=== PATIENT | female | born 2000 | race Caucasian/White ===

== ENCOUNTER 2021-04-23 16:29 | Emergency (ER) | payer BC, SELFPAY ==
--- NOTE | ~2021-04-23 | CT_ITS ---
EXAMINATION: CT HEAD WITHOUT CONTRAST CLINICAL INFORMATION: Seizure. Brain mass. COMPARISON: None available. TECHNIQUE: Contiguous axial imaging was performed from the skull base to vertex without intravenous administration of contrast. This CT examination was performed using dose optimization techniques as appropriate, variously including the following: *Automated exposure control. *Adjustment of mA and/or kV according to patient size (this includes techniques or standardized protocols for targeted exams where dose is matched to indication/reason for exam; i.e. extremities or head). *Use of iterative reconstruction technique. DLP: 622 mGy-cm FINDINGS: There is no evidence of acute intracranial hemorrhage or edematous territorial infarction. There is no abnormal attenuation within the brain parenchyma. Grewal-white matter differentiation is preserved. The ventricles are normal in size and configuration. No evidence for obstructive hydrocephalus. No abnormal mass effect or midline shift. The suprasellar cistern remains widely patent. Normal positioning of the cerebellar tonsils. No extra-axial fluid collections. No acute soft tissue or osseous abnormalities. The mastoid air cells and paranasal sinuses are clear. Mild leftward nasal septal deviation. CT/CT head/brain wo con IMPRESSION: No evidence of acute intracranial hemorrhage. No demonstrated abnormal intracranial mass effect.
[2021-04-23 17:42] VITALS: BP 120/76; PULSE 68; RESP 19; TEMP 36.6; O2SAT 98; BMI 25.8
--- NOTE | 2021-04-23 17:46 | ED.GENADULT ---
HPI - General Adult General Chief complaint: General Medical <UNA Fuchs - Last Filed: 04/24/21 15:29> Stated complaint: seizures, blood work <UNA Fuchs - Last Filed: 04/24/21 15:29> Time Seen by Provider: 04/23/21 17:43 <UNA Fuchs - Last Filed: 04/24/21 15:29> Source: patient <Mere Kohli MD - Last Filed: 04/23/21 23:25> Mode of arrival: ambulatory <Mere Kohli MD - Last Filed: 04/23/21 23:25> History of Present Illness HPI narrative: 20-year-old female with history of bipolar disorder and suicide attempt earlier in the your presents with complaints of intermittent inability to speak where she states that she is only able to text in order to communicate with her friends and notes that yesterday she fell down to the ground and was screaming and also describes what she feels is seizure-like activity with the exception that she is able to hear and see everything that is happening and denies any loss of bowel or bladder. Patient states that she has been taking her medication but feels that she does not have bipolar. She feels like she may be having a ?meltdown? but denies suicidal or homicidal ideation. She last saw her psychiatrist in 2 months ago and her next appointment is 1 month. This psychiatrist practices in the state of [place]. <Mere Kohli MD - Last Filed: 04/23/21 23:25> Related Data Allergies/adverse reactions: Allergies Allergy/AdvReac Type Severity Reaction Status Date / Time No Known Allergies Allergy Verified 04/23/21 17:44 <UNA Fuchs - Last Filed: 04/24/21 15:29> Review of Systems Review of Systems: Pertinent positives and negatives as stated in HPI 10 point review of systems is otherwise negative. <Mere Kohli MD - Last Filed: 04/23/21 23:25> PMFSH Past Medical History Source: nursing notes reviewed <Mere Kohli MD - Last Filed: 04/23/21 23:25> Medical History: Medical History ADHD Bipolar 1 disorder OCD (obsessive compulsive disorder) <UNA Fuchs - Last Filed: 04/24/21 15:29> Social History Social History: Social History Advance Directives: No Advance Directives Information Provided: No Patient : No <UNA Fuchs - Last Filed: 04/24/21 15:29> Physical Exam Vital Signs: Vital Signs: Last Vital Signs Temp 98.7 F 04/23/21 20:42 Pulse 64 04/23/21 20:42 Resp 16 04/23/21 20:42 BP 112/65 04/23/21 20:42 Pulse Ox 100 04/23/21 20:42 Body Mass Index 25.8 <UNA Fuchs - Last Filed: 04/24/21 15:29> Vital Signs: Last Vital Signs Temp 98.7 F 04/23/21 20:42 Pulse 64 04/23/21 20:42 Resp 16 04/23/21 20:42 BP 112/65 04/23/21 20:42 Pulse Ox 100 04/23/21 20:42 Body Mass Index 25.8 VITAL SIGNS: Reviewed. GENERAL: Well developed, well nourished, in no acute distress. HEAD: Normocephalic/atraumatic EYES: PERRLA, EOMI OROPHARYNX: no oral lesions noted, posterior pharynx clear LUNGS: Normal breath sounds. No adventitious sounds or accessory muscle use. SpO2<100> CARDIOVASCULAR: Regular rate and rhythm without noted murmurs ABDOMEN: Soft, non-tender, non-distended with bowel sounds. NEUROLOGIC: Alert and oriented x 4. Strength and sensation to light touch were grossly intact x 4. PSYCH: Calm, cooperative, flat affect <Mere Kohli MD - Last Filed: 04/23/21 23:25> Course Course Course Narrative: patient presents to the ED for possible seizure like activities. patient states 4 episodes of talking and then become stiff, her eyes blinking, not talking, and not moving extremities. patient states they last for a couple of seconds. Patiient states having it int he past, but never informed a medical provider. Patient is A0x3 and neuro exam intact. Rapid Medical Screening ordered. <UNA Fuchs - Last Filed: 04/24/21 15:29> Reevaluation(s) Reevaluation #1: 20-year-old female with history and clinical presentations suspected possible behavioral abnormalities and review of all investigations otherwise negative for evidence of metabolic, infectious abnormalities and CT of the head is negative. On questioning patient whether not she wishes to speak with somebody from our crisis team she affirms that she would like to do this. She is otherwise medically cleared for further evaluation by the care team. Patient evaluated by crisis team who feels that patient is safe for discharge and will be for provided with additional community resources for support, follow-up, as well as additional testing at the patient's request. Patient remains without complaints of suicidal ideation or depression and feels comfortable with her discharge. <Mere Kohli MD - Last Filed: 04/23/21 23:25> Medical Decision Making Lab Data Result diagrams: : 04/23/21 19:35 04/23/21 19:35 <UNA Fuchs - Last Filed: 04/24/21 15:29> Labs: Lab Results 04/23/21 04/23/21 04/23/21 Range/Units 19:35 19:35 20:50 WBC 9.6 (4.8-10.8) X10*3/uL RBC 4.71 (4.20-5.50) X10*6/uL Hgb 14.2 (12.0-16.0) g/dl Hct 43.5 (37-47) % MCV 92.4 (80-98) fL MCH 30.1 (27.0-33.0) pg MCHC 32.6 (31.0-35.0) g/dl RDW 14.2 (11.0-16.0) % Plt Count 369 (160-400) X10*3/uL MPV 9.1 L (9.4-12.3) fL Immature Gran % (Auto) 0.3 (0.0-0.4) % Neut % (Auto) 69.9 (45-73) % Lymph % (Auto) 22.7 (20-40) % [place] % (Auto) 6.0 (2-11) % Eos % (Auto) 0.6 (0-4) % Baso % (Auto) 0.5 (0-2) % Lymph # (Auto) 2.2 (1.2-4.9) X10*3/uL [place] # (Auto) 0.6 (0.1-1.2) X10*3/uL Eos # (Auto) 0.1 (0.0-0.4) X10*3/uL Baso # (Auto) 0.1 (0.0-0.2) X10*3/uL Abs Immat Gran (auto) 0.03 (0.00-0.03) X10*3/uL Absolute Neuts (auto) 6.7 (2.0-8.3) X10*3/uL Absolute Nucleated RBC 0.000 (0.0-0.012) X10*3/uL Nucleated RBC % (auto) 0.0 (0.0-0.2) /100WBC Sodium 141 (135-145) mmol/L Potassium 4.0 (3.3-5.1) mmol/L Chloride 107 (96-108) mmol/L Carbon Dioxide 25 (22-29) mmol/L Anion Gap 13 (12-20) BUN 6 L (9-16) mg/dL Creatinine 0.82 (0.5-1.4) mg/dL Estim Creat Clear Calc 118.3 Estimated GFR > 60 Random Glucose 90 (60-115) mg/dL Calcium 10.0 (8.4-10.2) mg/dL Magnesium 2.2 (1.6-2.6) mg/dL Total Bilirubin 0.6 (0.0-1.0) mg/dL Direct Bilirubin 0.2 (0.0-0.5) mg/dL AST 20 (5-31) U/L ALT 25 (0-31) U/L Alkaline Phosphatase 82 (39-117) U/L Total Creatine Kinase 64 (26-140) U/L Total Protein 7.6 (6.5-8.0) g/dL Albumin 4.9 (3.5-5.0) g/dL Beta HCG, Quant < 2 mIU/mL Urine Color Urine Appearance Urine pH (5.0-8.0) Ur Specific [place] (1.005-1.025) Urine Protein (NEG-TRACE) MG/DL Urine Glucose (UA) (NEG) MG/DL Urine Ketones (NEG) MG/DL Urine Blood (NEG) Urine Nitrite (NEG) Ur Leukocyte Esterase (NEG) Urine Test (NEGATIVE) [place] 0.17 L (0.60-1.20) mmol/L COVID-19 (FRANCES) (Negative) COVID-19 Clin Com 04/23/21 04/23/21 04/23/21 Range/Units 20:50 20:50 21:50 WBC (4.8-10.8) X10*3/uL RBC (4.20-5.50) X10*6/uL Hgb (12.0-16.0) g/dl Hct (37-47) % MCV (80-98) fL MCH (27.0-33.0) pg MCHC (31.0-35.0) g/dl RDW (11.0-16.0) % Plt Count (160-400) X10*3/uL MPV (9.4-12.3) fL Immature Gran % (Auto) (0.0-0.4) % Neut % (Auto) (45-73) % Lymph % (Auto) (20-40) % [place] % (Auto) (2-11) % Eos % (Auto) (0-4) % Baso % (Auto) (0-2) % Lymph # (Auto) (1.2-4.9) X10*3/uL [place] # (Auto) (0.1-1.2) X10*3/uL Eos # (Auto) (0.0-0.4) X10*3/uL Baso # (Auto) (0.0-0.2) X10*3/uL Abs Immat Gran (auto) (0.00-0.03) X10*3/uL Absolute Neuts (auto) (2.0-8.3) X10*3/uL Absolute Nucleated RBC (0.0-0.012) X10*3/uL Nucleated RBC % (auto) (0.0-0.2) /100WBC Sodium (135-145) mmol/L Potassium (3.3-5.1) mmol/L Chloride (96-108) mmol/L Carbon Dioxide (22-29) mmol/L Anion Gap (12-20) BUN (9-16) mg/dL Creatinine (0.5-1.4) mg/dL Estim Creat Clear Calc Estimated GFR Random Glucose (60-115) mg/dL Calcium (8.4-10.2) mg/dL Magnesium (1.6-2.6) mg/dL Total Bilirubin (0.0-1.0) mg/dL Direct Bilirubin (0.0-0.5) mg/dL AST (5-31) U/L ALT (0-31) U/L Alkaline Phosphatase (39-117) U/L Total Creatine Kinase (26-140) U/L Total Protein (6.5-8.0) g/dL Albumin (3.5-5.0) g/dL Beta HCG, Quant mIU/mL Urine Color YELLOW Urine Appearance CLEAR Urine pH 7.5 (5.0-8.0) Ur Specific [place] 1.020 (1.005-1.025) Urine Protein NEG (NEG-TRACE) MG/DL Urine Glucose (UA) NEG (NEG) MG/DL Urine Ketones NEG (NEG) MG/DL Urine Blood NEG (NEG) Urine Nitrite NEG (NEG) Ur Leukocyte Esterase NEG (NEG) Urine Test NEGATIVE (NEGATIVE) [place] (0.60-1.20) mmol/L COVID-19 (FRANCES) Negative (Negative) COVID-19 Clin Com See Note <UNA Fuchs - Last Filed: 04/24/21 15:29> Lab Results 04/23/21 04/23/21 04/23/21 Range/Units 19:35 19:35 20:50 WBC 9.6 (4.8-10.8) X10*3/uL RBC 4.71 (4.20-5.50) X10*6/uL Hgb 14.2 (12.0-16.0) g/dl Hct 43.5 (37-47) % MCV 92.4 (80-98) fL MCH 30.1 (27.0-33.0) pg MCHC 32.6 (31.0-35.0) g/dl RDW 14.2 (11.0-16.0) % Plt Count 369 (160-400) X10*3/uL MPV 9.1 L (9.4-12.3) fL Immature Gran % (Auto) 0.3 (0.0-0.4) % Neut % (Auto) 69.9 (45-73) % Lymph % (Auto) 22.7 (20-40) % [place] % (Auto) 6.0 (2-11) % Eos % (Auto) 0.6 (0-4) % Baso % (Auto) 0.5 (0-2) % Lymph # (Auto) 2.2 (1.2-4.9) X10*3/uL [place] # (Auto) 0.6 (0.1-1.2) X10*3/uL Eos # (Auto) 0.1 (0.0-0.4) X10*3/uL Baso # (Auto) 0.1 (0.0-0.2) X10*3/uL Abs Immat Gran (auto) 0.03 (0.00-0.03) X10*3/uL Absolute Neuts (auto) 6.7 (2.0-8.3) X10*3/uL Absolute Nucleated RBC 0.000 (0.0-0.012) X10*3/uL Nucleated RBC % (auto) 0.0 (0.0-0.2) /100WBC Sodium 141 (135-145) mmol/L Potassium 4.0 (3.3-5.1) mmol/L Chloride 107 (96-108) mmol/L Carbon Dioxide 25 (22-29) mmol/L Anion Gap 13 (12-20) BUN 6 L (9-16) mg/dL Creatinine 0.82 (0.5-1.4) mg/dL Estim Creat Clear Calc 118.3 Estimated GFR > 60 Random Glucose 90 (60-115) mg/dL Calcium 10.0 (8.4-10.2) mg/dL Magnesium 2.2 (1.6-2.6) mg/dL Total Bilirubin 0.6 (0.0-1.0) mg/dL Direct Bilirubin 0.2 (0.0-0.5) mg/dL AST 20 (5-31) U/L ALT 25 (0-31) U/L Alkaline Phosphatase 82 (39-117) U/L Total Creatine Kinase 64 (26-140) U/L Total Protein 7.6 (6.5-8.0) g/dL Albumin 4.9 (3.5-5.0) g/dL Beta HCG, Quant < 2 mIU/mL Urine Color Urine Appearance Urine pH (5.0-8.0) Ur Specific [place] (1.005-1.025) Urine Protein (NEG-TRACE) MG/DL Urine Glucose (UA) (NEG) MG/DL Urine Ketones (NEG) MG/DL Urine Blood (NEG) Urine Nitrite (NEG) Ur Leukocyte Esterase (NEG) Urine Test (NEGATIVE) [place] 0.17 L (0.60-1.20) mmol/L COVID-19 (FRANCES) (Negative) COVID-19 Clin Com 04/23/21 04/23/21 04/23/21 Range/Units 20:50 20:50 21:50 WBC (4.8-10.8) X10*3/uL RBC (4.20-5.50) X10*6/uL Hgb (12.0-16.0) g/dl Hct (37-47) % MCV (80-98) fL MCH (27.0-33.0) pg MCHC (31.0-35.0) g/dl RDW (11.0-16.0) % Plt Count (160-400) X10*3/uL MPV (9.4-12.3) fL Immature Gran % (Auto) (0.0-0.4) % Neut % (Auto) (45-73) % Lymph % (Auto) (20-40) % [place] % (Auto) (2-11) % Eos % (Auto) (0-4) % Baso % (Auto) (0-2) % Lymph # (Auto) (1.2-4.9) X10*3/uL [place] # (Auto) (0.1-1.2) X10*3/uL Eos # (Auto) (0.0-0.4) X10*3/uL Baso # (Auto) (0.0-0.2) X10*3/uL Abs Immat Gran (auto) (0.00-0.03) X10*3/uL Absolute Neuts (auto) (2.0-8.3) X10*3/uL Absolute Nucleated RBC (0.0-0.012) X10*3/uL Nucleated RBC % (auto) (0.0-0.2) /100WBC Sodium (135-145) mmol/L Potassium (3.3-5.1) mmol/L Chloride (96-108) mmol/L Carbon Dioxide (22-29) mmol/L Anion Gap (12-20) BUN (9-16) mg/dL Creatinine (0.5-1.4) mg/dL Estim Creat Clear Calc Estimated GFR Random Glucose (60-115) mg/dL Calcium (8.4-10.2) mg/dL Magnesium (1.6-2.6) mg/dL Total Bilirubin (0.0-1.0) mg/dL Direct Bilirubin (0.0-0.5) mg/dL AST (5-31) U/L ALT (0-31) U/L Alkaline Phosphatase (39-117) U/L Total Creatine Kinase (26-140) U/L Total Protein (6.5-8.0) g/dL Albumin (3.5-5.0) g/dL Beta HCG, Quant mIU/mL Urine Color YELLOW Urine Appearance CLEAR Urine pH 7.5 (5.0-8.0) Ur Specific [place] 1.020 (1.005-1.025) Urine Protein NEG (NEG-TRACE) MG/DL Urine Glucose (UA) NEG (NEG) MG/DL Urine Ketones NEG (NEG) MG/DL Urine Blood NEG (NEG) Urine Nitrite NEG (NEG) Ur Leukocyte Esterase NEG (NEG) Urine Test NEGATIVE (NEGATIVE) [place] (0.60-1.20) mmol/L COVID-19 (FRANCES) Negative (Negative) COVID-19 Clin Com See Note <Mere Kohli MD - Last Filed: 04/23/21 23:25> Discharge Plan Discharge Clinical Impression: Bipolar 1 disorder, Depression <UNA Fuchs - Last Filed: 04/24/21 15:29> Patient Disposition: Home, Self-Care <UNA Fuchs - Last Filed: 04/24/21 15:29> Instructions: Bipolar Disorder (ED), Depression (ED), Suicide Prevention (ED) <UNA Fuchs - Last Filed: 04/24/21 15:29> Additional Instructions: 1. Resume all home medications as prescribed. 2. Please utilize the information that you have been provided by the CARE team. 3. Do not hesitate to return to the emergency room should you experience any worsening of your symptoms, feeling overwhelm/depressed as we will be more than happy to help you. <UNA Fuchs - Last Filed: 04/24/21 15:29> Interventions: ED Discharge Assessment Last Done: 04/23/21 23:31 <UNA Fuchs - Last Filed: 04/24/21 15:29> Discharge Date/Time: 04/23/21 23:46 <UNA Fuchs - Last Filed: 04/24/21 15:29>
[2021-04-23 19:40] LABS: MANUAL DIFF FLAG NO
[2021-04-23 19:41] LABS: Basophils Absolute Auto 0.1 X10*3/uL (0.0-0.2); Basophils Percent Auto 0.5 % (0-2); Eosinophils Absolute Auto 0.1 X10*3/uL (0.0-0.4); Eosinophils Percent Auto 0.6 % (0-4); Hematocrit 43.5 % (37-47); Hemoglobin 14.2 g/dl (12.0-16.0); Imm Gran Abs Auto 0.03 X10*3/uL (0.00-0.03); Imm Gran Pct Auto 0.3 % (0.0-0.4); Lymphocytes Absolute Auto 2.2 X10*3/uL (1.2-4.9); Lymphocytes Percent Auto 22.7 % (20-40); Mean Corpuscular HGB Conc 32.6 g/dl (31.0-35.0); Mean Corpuscular Hemoglobin 30.1 pg (27.0-33.0); Mean Corpuscular Volume 92.4 fL (80-98); Mean Platelet Volume 9.1 fL (9.4-12.3); Monocytes Absolute Auto 0.6 X10*3/uL (0.1-1.2); Neutrophils Absolute Auto 6.7 X10*3/uL (2.0-8.3); Neutrophils Percent Auto 69.9 % (45-73); Platelet Count 369 X10*3/uL (160-400); Red Blood Count 4.71 X10*6/uL (4.20-5.50); Red Cell Distribution Width 14.2 % (11.0-16.0); White Blood Count 9.6 X10*3/uL (4.8-10.8)
[2021-04-23 20:04] LABS: Alanine Aminotransferase 25 U/L (0-31); Albumin Level 4.9 g/dL (3.5-5.0); Alkaline Phosphatase 82 U/L (39-117); Anion Gap 13 (12-20); Aspartate Amino Transferase 20 U/L (5-31); Bilirubin Direct 0.2 mg/dL (0.0-0.5); Bilirubin Total 0.6 mg/dL (0.0-1.0); Blood Urea Nitrogen 6 mg/dL (9-16); Carbon Dioxide 25 mmol/L (22-29); Chloride 107 mmol/L (96-108); Creatinine Clr Calc Pharmacy 118.3; Estimated Glomerular Filt Rate > 60; Glucose Random 90 mg/dL (60-115); Magnesium 2.2 mg/dL (1.6-2.6); Sodium 141 mmol/L (135-145); Total Protein 7.6 g/dL (6.5-8.0)
[2021-04-23 20:06] LABS: HCG Quantitative < 2 mIU/mL
[2021-04-23 20:42] VITALS: BP 112/65; PULSE 64; RESP 16; TEMP 37.1; O2SAT 100
[2021-04-23 20:57] LABS: Appearance Urine CLEAR; Color Urine YELLOW; Glucose Urine UA NEG (NEG); Leukocyte Esterase Urine NEG (NEG); Nitrite Urine NEG (NEG); PH 7.5 (5.0-8.0); Urine Blood NEG (NEG); Urine Ketones NEG (NEG); Urine Protein NEG (NEG-TRACE)
[2021-04-23 20:58] LABS: UPreg QC Valid YES; Urine Pregnancy NEGATIVE (NEGATIVE)
[2021-04-23 21:10] LABS: Lithium 0.17 mmol/L (0.60-1.20)
--- NOTE | 2021-04-23 21:52 | MHC.CARE ---
CARE team consult received. Pt has [employer] insurance and will be evaluated by this telegraphic typewriter installer.
[2021-04-23 22:10] LABS: COVID-19 Test Negative (Negative)
--- NOTE | 2021-04-23 22:13 | PC.NURSE ---
Patient just got transferred from main ED, ambulated independently, no distress observed/reported, waiting to be seen by care team, will continue to monitor.
--- NOTE | 2021-04-23 23:23 | MHC.CARE ---
CARE team met with pt in pod room 3. She was brought to ED by a friend for complaints of episodes of meltdowns that have been happening for the past week. She described them as either her falling to the floor while screaming and crying, or falling to the floor with a vacant expression on her face and being unable to speak or respond to others despite being totally aware of what is happening around her. Prior to one week ago she would occasionally experience the meltdowns (screaming and crying) but the four which she has had recently have all been the latter. She expressed feeling that she may have undiagnosed Autism Spectrum Disorder, and that she has been doing a lot of research and feels that everything points to a possible diagnosis. She shared that doctors have given her many diagnoses, including Bipolar Disorder and Obsessive-Compulsive Disorder, however she feels that her symptoms could all be due to undiagnosed and unaddressed Autism. She reported that she had a 504 plan (for social/emotional/behavioral support) in high school, which was likely in response to the onset of a major depressive episode, but did not have an IEP or any neuropsych or psych testing completed. She is currently connected with the student disability services office at [facility], but doesn't feel that the support there helps enough. She described that each academic year/semester starts off well, but as her classes progress she becomes overwhelmed, has meltdowns, and becomes increasingly anxious and depressed. She has a history of one suicide attempt via tylenol overdose in December 2020 and engaged in self harm (cutting) for four months prior. Denied current or recent SI/HI/SIB. She has a history of one psychiatric admission following the aforementioned suicide attempt. She is working with a psychiatrist, whom she last saw 2 months ago and has an appointment with next month. She does not have a therapist at this time but had worked with one for several years prior. 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 She has a younger sister who just moved to [place] to live with her father and boyfriend. Pt reported that she has a traumatic history with her father (no further details discussed). She is on a subclinical dose of [place] (level 0.17 in ED this evening) and is also prescribed Fluvoxamine to manage symptoms of OCD. She reported that she is compliant with her medications at this time. She does not agree with the diagnosis of bipolar disorder, citing that she never experienced a hypomanic/manic episode until after she had been started on a mood stabilizer, and feels that her OCD symptoms may in fact be due to underlying autism. This publications writer provided the pt with information for [facility] and details about the psychological testing they offer there. She was also given information for [employer] and neuropsych testing. She was encouraged to utilize the campus health/counseling center at the [facility] [place] for support in the interim. Discussed plan of care with ED attending physician Mere Kohli MD.
== END 2021-04-23 23:46 | disposition home or self-care (01) ==
PROVIDERS: Physician Assistant; Emergency Provider Student in an Organized Health Care Education/Training Program
DX: F33.1 Major depressive disorder, recurrent, moderate (principal); R45.851 Suicidal ideations; R42 Dizziness and giddiness; Z20.822 Contact with and (suspected) exposure to COVID-19; Z79.899 Other long term (current) drug therapy
CPT/HCPCS: 36415; 70450; 80053; 80178; 81003; 81025; 82248; 82550; 83735; 84702; 85025; 87635; 99283; 99284

== ENCOUNTER 2021-05-04 21:30 | Emergency (ER) | payer BC, SELFPAY ==
--- NOTE | ~2021-05-04 | XR_ITS ---
EXAMINATION: XR CHEST CLINICAL INFORMATION: Chest pain. COMPARISON: None TECHNIQUE: Frontal view of the chest was obtained. FINDINGS: No significant abnormality is noted involving the heart, lungs, mediastinum, bony thorax or soft tissues. XR/XR chest 1V IMPRESSION: No acute cardiopulmonary process.
[2021-05-04 21:45] VITALS: BP 131/92; PULSE 74; O2SAT 99
[2021-05-04 21:46] VITALS: BP 123/66; PULSE 64; RESP 18; TEMP 37; O2SAT 99; BMI 27.2
--- NOTE | 2021-05-04 21:50 | ECG_ITS ---
Test Reason : chest pain Blood Pressure : / mmHG Vent. Rate : 063 BPM Atrial Rate : 063 BPM P-R Int : 126 ms QRS Dur : 082 ms QT Int : 406 ms P-R-T Axes : 062 077 044 degrees QTc Int : 415 ms Normal sinus rhythm with sinus arrhythmia Normal ECG No previous ECGs available Referred By: Generic ED Physician Electronically Signed By:NIA LI MD
[2021-05-04 22:04] LABS: MANUAL DIFF FLAG NO
[2021-05-04 22:05] LABS: Basophils Absolute Auto 0.1 X10*3/uL (0.0-0.2); Basophils Percent Auto 0.6 % (0-2); Eosinophils Absolute Auto 0.1 X10*3/uL (0.0-0.4); Eosinophils Percent Auto 0.7 % (0-4); Hematocrit 38.2 % (37-47); Hemoglobin 12.7 g/dl (12.0-16.0); Imm Gran Abs Auto 0.04 X10*3/uL (0.00-0.03); Imm Gran Pct Auto 0.4 % (0.0-0.4); Lymphocytes Percent Auto 28.8 % (20-40); Mean Corpuscular HGB Conc 33.2 g/dl (31.0-35.0); Mean Corpuscular Hemoglobin 30.3 pg (27.0-33.0); Mean Corpuscular Volume 91.2 fL (80-98); Mean Platelet Volume 9.7 fL (9.4-12.3); Monocytes Absolute Auto 0.8 X10*3/uL (0.1-1.2); Monocytes Percent Auto 7.9 % (2-11); Neutrophils Absolute Auto 6.4 X10*3/uL (2.0-8.3); Neutrophils Percent Auto 61.6 % (45-73); Platelet Count 387 X10*3/uL (160-400); Red Blood Count 4.19 X10*6/uL (4.20-5.50); Red Cell Distribution Width 14.7 % (11.0-16.0); White Blood Count 10.3 X10*3/uL (4.8-10.8)
[2021-05-04 22:23] LABS: Troponin-I High Sensitivity 5.2 ng/L (<3.5-17.0)
[2021-05-04 22:54] LABS: Anion Gap 12 (12-20); Blood Urea Nitrogen 12 mg/dL (9-16); Calcium 9.7 mg/dL (8.4-10.2); Carbon Dioxide 24 mmol/L (22-29); Chloride 107 mmol/L (96-108); Creatinine Clr Calc Pharmacy 128.9; Estimated Glomerular Filt Rate > 60; Glucose Random 87 mg/dL (60-115); Potassium 4.1 mmol/L (3.3-5.1); Sodium 139 mmol/L (135-145)
--- NOTE | 2021-05-05 00:46 | ED.CHESTPAIN ---
HPI - Chest Pain General Chief Complaint: Chest Pain Stated Complaint: L sided chest pain Time Seen by Provider: 05/05/21 00:39 Source: patient Mode of arrival: ambulatory Limitations: no limitations History of Present Illness MD complaint: chest pain and chest heaviness Onset (ago): hour(s) (started at 9pm) Timing of current episode: episodic Prior episodes: No Onset: during rest Pain location: left chest Pain radiation: left arm and neck Severity: moderate Quality: heaviness Relieving factors: nothing Exacerbating factors: nothing Treatment prior to arrival: none Related Data Previous Rx's Medication Instructions Recorded lidocaine 4 % topical patch 1 patch TOPICAL DAILY PRN #10 ea 05/05/21 Allergies Allergy/AdvReac Type Severity Reaction Status Date / Time No Known Allergies Allergy Verified 04/23/21 17:44 Review of Systems Review of Systems: Constitutional : No Weight loss, No Fever, No Chills ENT/Mouth : No sore throat, No Rhinorrhea Eyes: No Eye Pain, No Swelling Cardiovascular : pos Chest Pain, no SOB, no Dyspnea on Exertion, No Orthopnea, No Edema, No Palpitations Respiratory : No Cough, No Sputum Gastrointestinal : no Nausea, No Vomiting, No Diarrhea, No abdominal Pain, No Hematochezia, No Melena Genitourinary : No Dysuria, No Urinary Frequency Musculoskeletal : No joint pain, No Myalgias, No Joint Swelling Skin : No Skin Lesions, No rash Neuro : No Weakness, No Numbness, No Dizziness, No Headache Psych : No Anxiety/Panic, No Depression Heme/Lymph: No Bruising, No Lymphadenopathy Endocrine : No Polyuria, No Polydipsia All other systems reviewed and are negative [facility] Past Medical History Attestation statement: The following information was validated with the patient. Medical History ADHD Bipolar 1 disorder OCD (obsessive compulsive disorder) Social History Social History (Updated 05/05/21 @ 00:59 by Erica Ng DO) Alcohol intake: never Patient Tobacco Use Status: Never used Tobacco Use of substances other than those prescribed or required for medical reasons: No Advance Directives: No Patient : No Physical Exam Vital Signs: Vital Signs: Last Vital Signs Temp 98.6 F 05/05/21 01:06 Pulse 53 05/05/21 01:06 Resp 15 05/05/21 01:06 BP 129/76 05/05/21 01:06 Pulse Ox 99 05/05/21 01:06 Body Mass Index 27.2 Appearance: Alert. Oriented X3. No acute distress. Eyes: Pupils equal, round and reactive to light. ENT: Pharynx normal. Neck: Normal inspection. Neck supple. CVS: Normal heart rate and rhythm. Pulses normal. Chest: ttp along L lateral chest wall reproduces pain Respiratory: No respiratory distress. Breath sounds normal. Abdomen: Soft and nontender. Skin: Skin warm and dry. Normal skin color. Normal skin turgor. Extremities: No lower extremity edema. No calf ttp Neuro: Oriented X 3. No motor deficit. No sensory deficit. Course Course Course Narrative: trop flat MDM - Chest Pain MDM Narrative Medical decision making narrative: 20 yo female with bipolar no OCP use comes in with reproduceable atypical CWP at this time initial workup negative will obtain basic labs, EKG, CXR, troponin, patient is PERC negative no suspicion for PE, distal pulses intact and pain is reproduceable suspect MSK pain. Lab Data Result diagrams: 05/04/21 21:58 05/04/21 22:34 Labs: Lab Results 05/04/21 05/04/21 05/04/21 Range/Units 21:58 21:58 22:34 WBC 10.3 (4.8-10.8) X10*3/uL RBC 4.19 L (4.20-5.50) X10*6/uL Hgb 12.7 (12.0-16.0) g/dl Hct 38.2 (37-47) % MCV 91.2 (80-98) fL MCH 30.3 (27.0-33.0) pg MCHC 33.2 (31.0-35.0) g/dl RDW 14.7 (11.0-16.0) % Plt Count 387 (160-400) X10*3/uL MPV 9.7 (9.4-12.3) fL Immature Gran % (Auto) 0.4 (0.0-0.4) % Neut % (Auto) 61.6 (45-73) % Lymph % (Auto) 28.8 (20-40) % Republic % (Auto) 7.9 (2-11) % Eos % (Auto) 0.7 (0-4) % Baso % (Auto) 0.6 (0-2) % Lymph # (Auto) 3.0 (1.2-4.9) X10*3/uL Republic # (Auto) 0.8 (0.1-1.2) X10*3/uL Eos # (Auto) 0.1 (0.0-0.4) X10*3/uL Baso # (Auto) 0.1 (0.0-0.2) X10*3/uL Abs Immat Gran (auto) 0.04 H (0.00-0.03) X10*3/uL Absolute Neuts (auto) 6.4 (2.0-8.3) X10*3/uL Absolute Nucleated RBC 0.000 (0.0-0.012) X10*3/uL Nucleated RBC % (auto) 0.0 (0.0-0.2) /100WBC Sodium 139 (135-145) mmol/L Potassium 4.1 (3.3-5.1) mmol/L Chloride 107 (96-108) mmol/L Carbon Dioxide 24 (22-29) mmol/L Anion Gap 12 (12-20) BUN 12 D (9-16) mg/dL Creatinine 0.83 (0.5-1.4) mg/dL Estim Creat Clear Calc 128.9 Estimated GFR > 60 Random Glucose 87 (60-115) mg/dL Calcium 9.7 (8.4-10.2) mg/dL Troponin I High Sens 5.2 (<3.5-17.0) ng/L 05/05/21 Range/Units 01:20 WBC (4.8-10.8) X10*3/uL RBC (4.20-5.50) X10*6/uL Hgb (12.0-16.0) g/dl Hct (37-47) % MCV (80-98) fL MCH (27.0-33.0) pg MCHC (31.0-35.0) g/dl RDW (11.0-16.0) % Plt Count (160-400) X10*3/uL MPV (9.4-12.3) fL Immature Gran % (Auto) (0.0-0.4) % Neut % (Auto) (45-73) % Lymph % (Auto) (20-40) % Republic % (Auto) (2-11) % Eos % (Auto) (0-4) % Baso % (Auto) (0-2) % Lymph # (Auto) (1.2-4.9) X10*3/uL Republic # (Auto) (0.1-1.2) X10*3/uL Eos # (Auto) (0.0-0.4) X10*3/uL Baso # (Auto) (0.0-0.2) X10*3/uL Abs Immat Gran (auto) (0.00-0.03) X10*3/uL Absolute Neuts (auto) (2.0-8.3) X10*3/uL Absolute Nucleated RBC (0.0-0.012) X10*3/uL Nucleated RBC % (auto) (0.0-0.2) /100WBC Sodium (135-145) mmol/L Potassium (3.3-5.1) mmol/L Chloride (96-108) mmol/L Carbon Dioxide (22-29) mmol/L Anion Gap (12-20) BUN (9-16) mg/dL Creatinine (0.5-1.4) mg/dL Estim Creat Clear Calc Estimated GFR Random Glucose (60-115) mg/dL Calcium (8.4-10.2) mg/dL Troponin I High Sens 5.4 (<3.5-17.0) ng/L ECG Data ECG #1: Attestation: I personally reviewed and interpreted this ECG as follows: ECG interpretation date: 05/05/21 ECG interpretation time: 00:46 Interpretation: Rate: 63 Rhythm: NSR [place]: normal Normal P waves. Normal BARBIE. Normal QRS complex. ST T wave : no JESS, inverted in V1-V2 qTC: normal prior studies: no acute ischemia The study has been interpreted contemporaneously by me. . Discharge Plan Discharge Clinical Impression: Atypical chest pain Patient Disposition: Home, Self-Care Instructions: Chest Pain (ED), Chest Wall Pain (ED) Additional Instructions: return to ED for any worsening symptoms or concerns Prescriptions: New lidocaine 4 % adhesive patch,medicated 1 patch topical DAILY PRN (Reason: pain) Qty: 10 RF: 0 Referrals: Physician,Nonstaff [Primary Care Provider] - 3 days (if not better) Stand Alone Forms: Work/School Release
[2021-05-05 01:06] VITALS: BP 129/76; PULSE 53; RESP 15; TEMP 37; O2SAT 99
[2021-05-05] MEDS: Lidocaine 4 % Patch ADH..PATCH 1 PATCH TRANSDERMA (01:17)
[2021-05-05 01:55] LABS: Troponin-I High Sensitivity 5.4 ng/L (<3.5-17.0)
--- NOTE | 2021-05-05 02:09 | PC.NURSE ---
Pt alert and oriented x4, calm and cooperative. Pt states pain has improved at this time. Pt educated on dc teaching and states she is ready for discharge. IV removed. Vitals stable. Pt ambulated out with friend.
== END 2021-05-05 02:10 | disposition home or self-care (01) ==
PROVIDERS: Emergency Provider Emergency Medicine
DX: R07.89 Other chest pain (principal)
CPT/HCPCS: 36415; 71045; 80048; 84484; 85025; 93005; 99284; 99285

== ENCOUNTER 2021-09-14 17:55 | Emergency (ER) | payer BC, SELFPAY ==
[2021-09-14 18:02] VITALS: BP 130/70; PULSE 60; RESP 18; TEMP 36.8; O2SAT 99; BMI 27.8
--- NOTE | 2021-09-14 18:17 | ED.OVERDOSE ---
HPI - Overdose General Chief Complaint: Overdose Stated Complaint: med issue Time Seen by Provider: 09/14/21 18:03 Source: patient Mode of arrival: ambulatory Limitations: no limitations History of Present Illness HPI Narrative: Patient 21 years old with history of PTSD, depression, insomnia on doxepin and lithium. Patient takes doxepin 150 mg in the nighttime which she took last night and today prior to arrival around 16:00 took 3 tablets of doxepin instead of 3 tablets of lithium accidentally patient complaining of feeling sleepy. Denies any suicidal ideation or thoughts of overdosing. Patient does have history of depression and suicidal attempts in the past and she just broke up with her girlfriend. Related Data Previous Rx's Medication Instructions Recorded lidocaine 4 % topical patch 1 patch TOPICAL DAILY PRN #10 ea 05/05/21 Allergies Allergy/AdvReac Type Severity Reaction Status Date / Time No Known Allergies Allergy Verified 04/23/21 17:44 Review of Systems Review of Systems: Yes all other systems are reviewed and are negative PMFSH Past Medical History Medical History ADHD Bipolar 1 disorder OCD (obsessive compulsive disorder) Social History Social History Alcohol intake: never Patient Tobacco Use Status: Never used Tobacco Use of substances other than those prescribed or required for medical reasons: Unknown Advance Directives: No Advance Directives Information Provided: No Physical Exam Vital Signs: Vital Signs: Last Vital Signs Temp 98.3 F 09/14/21 18:02 Pulse 145 H 09/14/21 22:00 Resp 20 09/14/21 22:00 BP 108/73 09/14/21 22:00 Pulse Ox 97 09/14/21 19:29 BMI result Body Mass Index 27.8 Appearance: Alert. Oriented X3. No acute distress. Sleepy but awake Eyes: PERRL ENT: Pharynx normal. Oral Mucosa moist Neck: Normal inspection. Neck supple. CVS: Normal heart rate and rhythm. Pulses normal. Respiratory: No respiratory distress. Equal air entry bilateral, no wheezing/rales/rhonchi Abdomen: Soft and nontender. Bowel sounds are present, no mass palpable, no CVA tenderness Skin: Skin warm and dry. Normal skin color. Normal skin turgor. Extremities: No lower extremity edema. No calf tenderness psych: Mood stable, and denies any suicidal ideation no hallucination Neuro: Oriented X 3. No motor deficit. No sensory deficit.No cerebellar signs , cranial nerves II-XII intact MDM - Overdose Medical Records Medical records narrative: History of significant depression took extra tablet of doxepin very sleepy after arrival in the ER will get care team to talk to the patient re-evaluate in the morning Lab Data Attestation: I reviewed the patient's lab results. Result diagrams: 09/14/21 20:34 Labs: Lab Results 09/14/21 09/14/21 09/14/21 Range/Units 20:34 20:34 20:34 Sodium 140 (135-145) mmol/L Potassium 4.1 (3.3-5.1) mmol/L Chloride 108 (96-108) mmol/L Carbon Dioxide 24 (22-29) mmol/L Anion Gap 12 (12-20) BUN 8 L (9-16) mg/dL Creatinine 0.92 (0.5-1.4) mg/dL Estim Creat Clear Calc 116.5 Estimated GFR > 60 Random Glucose 98 (60-115) mg/dL Calcium 9.7 (8.4-10.2) mg/dL Total Bilirubin 0.4 (0.0-1.0) mg/dL AST 15 (5-31) U/L ALT 20 (0-31) U/L Alkaline Phosphatase 57 D (39-117) U/L Total Protein 6.9 (6.5-8.0) g/dL Albumin 4.4 (3.5-5.0) g/dL Salicylates < 5.0 L (15-30) mg/dL Urine Opiates Screen Not Detected (Not Detect) Urine Fentanyl Screen Not Detected (Not Detect) Acetaminophen < 1 (<30) mcg/mL Ur Barbiturates Screen Not Detected (Not Detect) Ur Phencyclidine Scrn Not Detected (Not Detect) Ur Amphetamines Screen Not Detected (Not Detect) U Benzodiazepines Scrn Not Detected (Not Detect) Urine Cocaine Screen Not Detected (Not Detect) U Marijuana (THC) Screen Not Detected (Not Detect) COVID-19 (FRANCES) Negative (Negative) COVID-19 Clin Com See Note Discharge Plan Discharge Clinical Impression: Drug overdose Patient Disposition: Still a Patient Instructions: Adult Overdose (ED) Additional Instructions: Take medications at the prescribed doses only Prescriptions: No Action lidocaine 4 % adhesive patch,medicated 1 patch topical DAILY PRN (Reason: pain) Qty: 10 0RF Rx Instructions: may leave on for up to 12 hrs
[2021-09-14 18:30] VITALS: BP 115/74; PULSE 120; RESP 18; O2SAT 97
--- NOTE | 2021-09-14 18:55 | PC.NURSE ---
Phone call placed to poison control due to overdose. Patient overdosed on doxepin, instead of taking 150 which is her usual dose she took she took 450 mg. Per poison control the toxicity dose is 5 mg/kg but she is bordering on toxic level. Poison control recommended an EKG and cardiac monitoring. Patient took this overdose at 1:00pm today. Poison control will call me back to confirm observation time. This designer writer informed MD who said he wanted the patient to be discharged.
--- NOTE | 2021-09-14 18:57 | ECG_ITS ---
Test Reason : OVERDOSE Blood Pressure : / mmHG Vent. Rate : 091 BPM Atrial Rate : 091 BPM P-R Int : 142 ms QRS Dur : 082 ms QT Int : 350 ms P-R-T Axes : 060 106 033 degrees QTc Int : 430 ms Normal sinus rhythm Rightward axis Borderline ECG When compared with ECG of 04-MAY-2021 22:26, No significant change was found Referred By: Jeremías Granger Electronically Signed By:CHAPARRO WAYNE
[2021-09-14 19:29] VITALS: BP 102/64; PULSE 88; RESP 18; O2SAT 97
[2021-09-14 20:54] LABS: Acetaminophen LAB < 1 mcg/mL (<30); Salicylate < 5.0 mg/dL (15-30)
[2021-09-14 20:59] LABS: Amphetamine Screen Urine Not Detected (Not Detect); Barbiturates, Urine Not Detected (Not Detect); Benzodiazepines Screen Urine Not Detected (Not Detect); Cannabinoid Screen Urine Not Detected (Not Detect); Cocaine Screen Urine Not Detected (Not Detect); Fentanyl, urine Not Detected (Not Detect); Opiate Screen Urine Not Detected (Not Detect); Phencyclidine Screen Urine Not Detected (Not Detect)
[2021-09-14 21:00] LABS: COVID-19 Test Negative (Negative); IDNOW Serial# 16C4AD1C
[2021-09-14 21:01] LABS: Alanine Aminotransferase 20 U/L (0-31); Albumin Level 4.4 g/dL (3.5-5.0); Alkaline Phosphatase 57 U/L (39-117); Anion Gap 12 (12-20); Aspartate Amino Transferase 15 U/L (5-31); Bilirubin Total 0.4 mg/dL (0.0-1.0); Blood Urea Nitrogen 8 mg/dL (9-16); Calcium 9.7 mg/dL (8.4-10.2); Carbon Dioxide 24 mmol/L (22-29); Chloride 108 mmol/L (96-108); Creatinine Clr Calc Pharmacy 116.5; Estimated Glomerular Filt Rate > 60; Glucose Random 98 mg/dL (60-115); Potassium 4.1 mmol/L (3.3-5.1); Sodium 140 mmol/L (135-145); Total Protein 6.9 g/dL (6.5-8.0)
--- NOTE | 2021-09-14 21:51 | PC.NURSE ---
Patient's mother at bedside. Patient's mother stated that the patient just recently broke up with her girlfriend recently. Urine tox screen was negative as well as tylenol and salicylate.
--- NOTE | 2021-09-14 21:56 | MHC.CARE ---
CARE Team attempted to meet with pt for evaluation, but pt could not be roused. Pt's mom, Jamee Yuan, reports that pt recently broke up with her girlfriend which she has been struggling with. Pt's mom asked to be called in AM with disposition at [phone]. CARE Team will evaluate pt when she is more able to engage.
--- NOTE | 2021-09-14 21:58 | PC.NURSE ---
Care team to see and evaluate patient in the morning.
[2021-09-14 22:00] VITALS: BP 108/73; PULSE 145; RESP 20
[2021-09-15] VITALS: BP 87/50; PULSE 72; RESP 13; TEMP 36.8; O2SAT 97
[2021-09-15 01:07] VITALS: BP 95/52
--- NOTE | 2021-09-15 01:26 | PC.NURSE ---
Patient awoke and was more alert than earlier this evening. Patient did answer questions. Plan is for CARE team to see patient in the morning to speak and assess her.
[2021-09-15 04:16] VITALS: BP 96/58; PULSE 55; RESP 15; TEMP 36.6; O2SAT 97
--- NOTE | 2021-09-15 04:27 | PC.NURSE ---
Pt asleep in between care on stretcher in NAD, breathing with ease on RA. Pt awoke during VS, offers no complaints/concerns, returns to sleep quickly. Pt's stretcher in low locked position, rails raised, call mckee within reach. Pt awaiting CARE team eval in AM
[2021-09-15 06:19] VITALS: BP 98/51; PULSE 41; RESP 14; O2SAT 97
[2021-09-15 07:29] VITALS: BP 85/45; PULSE 44; RESP 11; O2SAT 97
[2021-09-15 08:00] VITALS: BP 94/57; PULSE 54; RESP 16; O2SAT 98
--- NOTE | 2021-09-15 11:45 | MHC.CARE ---
CARE Team met with patient in the main ED, bed 4 for consultation after she reportedly took the wrong medication last night, took 3 tablets of PRN Doxepin (sleep medication) instead of three tablets of her evening dose of [place]. She was alert and oriented, easily engaged; stated that the medications look similar and when she began to feel sleepy checked the bottle and realized the error, called public safety. Patient appeared to be forthcoming, said that although she did recently have a break-up, that had nothing to do with taking the wrong medication. Denied suicidal ideation, plan or intention, is future oriented, doing well in school and has a good support system in place. Patient spoke about her history of one prior intentional overdose a 1 ? years ago when she was unstable prior to being diagnosed with bipolar D/O, has been doing well on current regimen of mood stabilizers. Has a psychiatrist in [place] where her family lives and meets with a therapist through [facility], is looking for someone off campus and is aware of the local resources. Patient's mother was in the ED; she reported no concerns about her daughter's current mental health and believes this was an accidental overdose, said that patient is typically honest and helps seeking when she needs to be. Plans to take her daughter home for the weekend to rest and bring her back to campus on Friday or Friday. Call to [facility] on-call clinician, Rj Martin. She reported no apprehension about patient returning to school. They will reach out to student to offer support and can assist her in finding an off campus therapist. ED provider, [facility] Crain and RN Jennifer Grace but updated about plan for discharge.
== END 2021-09-15 11:14 | disposition home or self-care (01) ==
PROVIDERS: Emergency Provider Internal Medicine
DX: T43.011A Poisoning by tricyclic antidepressants, accidental (unintentional), initial encounter (principal); T56.891A Toxic effect of other metals, accidental (unintentional), initial encounter; Y92.9 Unspecified place or not applicable; F33.1 Major depressive disorder, recurrent, moderate; G47.00 Insomnia, unspecified; Z20.822 Contact with and (suspected) exposure to COVID-19; Z79.899 Other long term (current) drug therapy; Z91.14 Patient's other noncompliance with medication regimen
CPT/HCPCS: 36415; 80053; 80143; 80179; 80307; 87635; 93005; 99285

== ENCOUNTER 2022-07-31 17:59 | Outpatient (REF) | payer BC, SELFPAY ==
[2022-07-31 18:57] LABS: Influenza A PCR NEGATIVE (Negative); Influenza B PCR NEGATIVE (Negative); Resp Syncy Virus RNA Qual PCR NEGATIVE (Negative); SARS COV2 PCR INHOUSE NEGATIVE (Negative)
== END 2022-07-31 18:00 | disposition home or self-care (01) ==
LOC: HO.LNP 17:59
PROVIDERS: Visit Provider Internal Medicine
DX: Z20.822 Contact with and (suspected) exposure to COVID-19 (principal); R43.9 Unspecified disturbances of smell and taste
CPT/HCPCS: 0241U